=== PATIENT | female | born 1970 | race Caucasian/White ===

== ENCOUNTER 2023-03-07 10:11 | Inpatient (IN) | payer OTHER ==
[~2023-03-07] VITALS: Ht 167.6 cm; Wt 84.9 kg
[2023-03-07] VITALS (63 sets, daily range): BP systolic 47–171; BP diastolic 26–113; PULSE 83–143; RESP 14–48; TEMP 97.8–98.4
[2023-03-07] MEDS ORDERED: LIDOCAINE HCL 1% 20ML VIAL (Pyxis) INJ ONE (10:30)
[2023-03-07] MEDS ORDERED: HEPARIN 5000 UNITS/ML VIAL IV ONE ×2 (10:30→10:45)
[2023-03-07] MEDS ORDERED: MIDAZOLAM HCL 2 MG/2 ML VIAL ONE (10:31)
[2023-03-07] MEDS ORDERED: HEPARIN 1000 UNITS/ML 10ML ONE (10:31)
[2023-03-07] MEDS ORDERED: IODIXANOL 320MG/ML 100 ML BOTTLE IV ONE ×2 (10:31→11:46)
[2023-03-07] MEDS ORDERED: FENTANYL CITRATE/PF 50MCG/ML 2ML VIAL ONE (10:31)
[2023-03-07] MEDS ORDERED: SODIUM CHLORIDE 0.9% 1,000 ML IV ONE (10:45)
[2023-03-07] MEDS ORDERED: ASPIRIN 325MG TABLET PO NR (10:45)
[2023-03-07 11:06] LABS: HEMATOCRIT. 28.6 % (36.0-48.0); HEMOGLOBIN. 8.8 g/dL (12.0-16.0); MEAN CORPUSCULAR HEMOGLOBIN 25.7 pg (28.0-32.0); MEAN CORPUSCULAR HGB CONC 30.9 g/dL (31.0-37.0); MEAN CORPUSCULAR VOLUME 83.4 fL (81.0-99.0); MEAN PLATELET VOLUME 8.4 fl (7.4-10.4); PLATELET 516 x1000/uL (130-400); RED BLOOD CELL COUNT 3.43 mill/uL (4.2-5.4); RED CELL DISTRIBUTION WIDTH 17.1 % (11.6-14.6); WHITE BLOOD COUNT 20.1 x1000/uL (4.5-11.0)
[2023-03-07 11:07] LABS: CHLORIDE 107 mEq/L (98-107); INDEX HEMOLYSI 2 (1-3); INDEX ICTERIC 1 (1-4); INDEX LIPEMIC 1 (1-3); POTASSIUM 3.5 mEq/L (3.5-5.1); SODIUM 139 mEq/L (136-145)
[2023-03-07 11:10] LABS: CLARITY URINE CLOUDY (CLEAR); COLOR URINE ORANGE (YELLOW); GLUCOSE URINE 1+ (NEGATIVE); KETONES URINE NEGATIVE (NEGATIVE); LEUKOCYTE ESTERASE URINE TRACE (NEGATIVE); NITRITE URINE NEGATIVE (NEGATIVE); OCCULT BLOOD URINE 3+ (NEGATIVE); PH URINE 7.5 (4.5-8.0); PROTEIN URINE 4+ (NEGATIVE); SPECIFIC GRAVITY URINE 1.012 (1.005-1.030); UROBILINOGEN URINE 0.2 E.U./dL (0.2-1.0)
[2023-03-07 11:11] LABS: DIFFERENTIAL COMMENT 1
[2023-03-07 11:15] LABS: CALCIUM 8.2 mg/dL (8.5-10.1); CARBON DIOXIDE 21 mEq/L (21-32); CREATININE 2.9 mg/dL (0.6-1.3); GLUCOSE 188 mg/dL (70-105); UREA NITROGEN BLOOD 17 mg/dL (7-21)
[2023-03-07 11:19] LABS: INR 1.2; PARTIAL THROMBOPLASTIN TIME 27.8 sec (23.4-31.0); PROTHROMBIN TIME 12.4 sec (9.6-11.0)
[2023-03-07] MEDS ORDERED: TICAGRELOR 90 MG TABLET PO ONE (11:20)
[2023-03-07 11:24] LABS: HCG SCREEN NEGATIVE
[2023-03-07 11:30] LABS: BACTERIA URINE 1+; RBC URINE TNTC /hpf (0-2); SQUAMOUS EPITHELIAL CELL URINE 1+ /lpf (RARE/1+); YEAST URINE NONE SEEN
[2023-03-07 11:36] LABS: CHLORIDE 108 mEq/L (98-107); INDEX HEMOLYSI 2 (1-3); INDEX ICTERIC 1 (1-4); INDEX LIPEMIC 1 (1-3); POTASSIUM 3.6 mEq/L (3.5-5.1); SODIUM 140 mEq/L (136-145)
[2023-03-07] MEDS ORDERED: AMIODARONE HCL 50MG/ML 3ML VIAL IV ONE (11:40)
[2023-03-07 11:41] LABS: BG CARBOXYHEMOGLOBIN 0.3 % (0.5-1.5); BG DEOXYHEMOGLOBIN 1.3 % (0.0-5.0); BG FRACTION INSPIRED OXYGEN 100; BG HCO3 ACT 21.3 mmol/L (22.0-26.0); BG OXYGEN SATURATION 98.7 % (92.0-98.5); BG OXYHEMOGLOBIN 98.4 % (94.0-97.0); BG PCO2 35.1 mmHg (35.0-45.0); BG PH 7.401 (7.350-7.450); BG PO2 161.8 mmHg (75.0-100.0); BG SAMPLE SITE Other; BG TOTAL HEMOGLOBIN 8.9 g/dL (12.0-18.0); BG VENT MODE VENT - AC
[2023-03-07 11:45] LABS: ALANINE AMINOTRANSFERASE 36 IU/L (13-61); ALBUMIN 1.9 g/dL (3.4-5.0); ASPARTATE AMINOTRANSFERASE 58 IU/L (15-37); BILIRUBIN TOTAL 0.6 mg/dL (0.1-1.0); CALCIUM 8.7 mg/dL (8.5-10.1); CARBON DIOXIDE 20 mEq/L (21-32); CREATININE 2.9 mg/dL (0.6-1.3); GLUCOSE 191 mg/dL (70-105); NT PRO B-TYPE NATRIURETIC PEP 12341 pg/mL (5-125); PROTEIN TOTAL 6.6 g/dL (6.0-8.3); UREA NITROGEN BLOOD 18 mg/dL (7-21)
[2023-03-07] MEDS ORDERED: ASPIRIN 325MG TABLET ONE (11:48)
[2023-03-07 11:58] LABS: TROPONIN I HIGH SENSITIVITY 150 ng/L (<54)
[2023-03-07] MEDS ORDERED: EPTIFIBATIDE 2 MG/ML 10ML VIAL IV ONE ×3 (12:04→17:30)
[2023-03-07] MEDS ORDERED: EPTIFIBATIDE 100 ML IV ONE (12:10)
[2023-03-07] MEDS ORDERED: AMIODARONE HCL 900 MG in DEXT 5% WATER 500 ML IV PRN (12:15)
[2023-03-07 12:27] LABS: ANISOCYTOSIS 1+; PLATELET ESTIMATE INCREASED
[2023-03-07] MEDS ORDERED: FUROSEMIDE 100MG/10ML VIAL ONE (12:40)
[2023-03-07] MEDS ORDERED: DOCUSATE SODIUM 100MG CAPSULE PO PRN (13:30)
[2023-03-07] MEDS ORDERED: IPRATROPIUM/ALBUTEROL 0.5-3(2.5)MG/3ML NEB HHN PRN (13:30)
[2023-03-07] MEDS ORDERED: GUAIFENESIN 200MG/10ML SUGAR FREE UDC PO PRN (13:30)
[2023-03-07] MEDS ORDERED: ONDANSETRON HCL 4MG/2ML INJ IV PRN (13:30)
[2023-03-07] MEDS ORDERED: DEXTROSE 50% WATER 50ML SYRINGE IV PRN (13:30)
[2023-03-07] MEDS ORDERED: ACETAMINOPHEN 325MG TABLET PO PRN (13:30)
[2023-03-07] MEDS ORDERED: MAGNESIUM/ALUMINUM HYDROXIDE/SIMETHICONE 30ML UDC PO PRN (13:30)
[2023-03-07] MEDS ORDERED: CLONIDINE 0.1MG TABLET PO PRN (13:30)
[2023-03-07] MEDS ORDERED: IPRATROPIUM BROMIDE (0.02%) 0.5MG/2.5ML NEB HHN PRN (13:45)
[2023-03-07] MEDS ORDERED: LIDOCAINE HCL 1% 10 MG/ML 10ML VIAL ONE (13:53)
[2023-03-07] MEDS ORDERED: PROPOFOL 10MG/ML 100ML 100 ML IV PRN (14:00)
[2023-03-07] MEDS ORDERED: ENOXAPARIN 40MG/0.4ML SYR SUBCUT SCH (14:00)
[2023-03-07] MEDS ORDERED: MIDAZOLAM 100MG/100ML PMX 100 ML IV PRN (14:15)
[2023-03-07] MEDS ORDERED: FENTANYL 2500MCG/250ML PMX 250 ML IV ONE (14:15)
[2023-03-07] MEDS ORDERED: VANCOMYCIN 1250MG in DEXTROSE 5% WATER 250ML IV NR (14:30)
[2023-03-07] MEDS: FENTANYL CITRATE 2,500 MCG in SODIUM CHLORIDE 0.9% 200 ML IV PRN (14:59)
[2023-03-07] MEDS: MIDAZOLAM HCL 100 MG in SODIUM CHLORIDE 0.9% 100 ML IV PRN (15:00)
[2023-03-07] MEDS: ENOXAPARIN 30MG/0.3ML SYR SUBCUT SCH (15:00)
[2023-03-07] MEDS ORDERED: PHENYLEPHRINE 50 MG in DEXT 5% WATER 245 ML IV PRN (15:00)
[2023-03-07] MEDS: NOREPINEPHRINE 8MG/250ML PMX 250 ML IV PRN ×2 (16:00→17:45)
[2023-03-07] MEDS ORDERED: PIPERACILLIN/TAZOBACTAM 3.375 G in DEXTROSE 5% WATER 50 ML IV SCH (16:00)
[2023-03-07] MEDS: PANTOPRAZOLE SODIUM 40 MG/VIAL IV SCH (16:04)
[2023-03-07] MEDS: INSULIN LISPRO 100 UNITS/ML SUBCUT SCH ×2 (16:05→18:37)
[2023-03-07] MEDS ORDERED: DOPAMINE 400MG/250ML PREMIX 250 ML IV PRN (16:15)
[2023-03-07] MEDS ORDERED: VASOPRESSIN 20 UNIT in SODIUM CHLORIDE 0.9% 99 ML IV PRN (17:00)
[2023-03-07] MEDS: TICAGRELOR 90 MG TABLET PO SCH (17:06)
[2023-03-07 17:17] LABS: LACTIC ACID 12.8 mmol/L (0.4-2.0)
[2023-03-07] MEDS ORDERED: BLOOD SUGAR DIAGNOSTIC STRIP TEST SCH (17:50)
[2023-03-07 17:57] LABS: BG BASE EXCESS -18.3 mmol/L (-2.0-2.0); BG CARBOXYHEMOGLOBIN 0.3 % (0.5-1.5); BG DEOXYHEMOGLOBIN 28.3 % (0.0-5.0); BG FRACTION INSPIRED OXYGEN 100; BG HCO3 ACT 9.8 mmol/L (22.0-26.0); BG METHEMOGLOBIN 0.4 % (0.0-1.5); BG OXYGEN SATURATION 71.5 % (92.0-98.5); BG PCO2 31.1 mmHg (35.0-45.0); BG PH 7.115 (7.350-7.450); BG PO2 53.4 mmHg (75.0-100.0); BG SAMPLE SITE LEFT RADIAL; BG TOTAL HEMOGLOBIN 9.5 g/dL (12.0-18.0); BG VENT MODE VENT - AC
[2023-03-07] MEDS ORDERED: EPINEPHRINE 10 MG in SODIUM CHLORIDE 0.9% 240 ML IV PRN (18:00)
[2023-03-07] MEDS ORDERED: ALBUMIN HUMAN 12.5GM/50ML (25%) IV NR (18:00)
[2023-03-07] MEDS ORDERED: EPTIFIBATIDE 100 ML IV SCH ×2 (18:00)
[2023-03-07] MEDS ORDERED: SODIUM BICARBONATE 8.4% 1 MEQ/ML 50ML SYR IV NR (18:15)
[2023-03-07 18:32] LABS: TROPONIN I HIGH SENSITIVITY > 125000 ng/L (<54)
[2023-03-07] MEDS: METHYLPREDNISOLONE SOD SUCC 40MG/ML (ACT-O-VIAL) IV SCH (18:40)
[2023-03-07 19:11] LABS: INDEX HEMOLYSI 1 (1-3)
[2023-03-07] MEDS: NOREPINEPHRINE 32 MG in DEXT 5% WATER 218 ML IV PRN (19:21)
[2023-03-07 19:32] LABS: CREATINE KINASE 1728 IU/L (26-192); CREATINE KINASE MB FRACTION 173.6 ng/mL (0.5-3.6)
[2023-03-07] MEDS: DOPAMINE 400MG/250ML PREMIX 250 ML IV SCH (20:24)
[2023-03-07 20:28] LABS: TROPONIN I HIGH SENSITIVITY > 125000 ng/L (<54)
[2023-03-07] MEDS: ATORVASTATIN CALCIUM 40MG TABLET PO SCH (21:24)
[2023-03-07] MEDS: PHENYLEPHRINE 100 MG in DEXT 5% WATER 240 ML IV PRN (21:26)
[2023-03-07 22:27] LABS: LACTIC ACID 14.1 mmol/L (0.4-2.0)
[2023-03-07 22:30] LABS: TROPONIN I HIGH SENSITIVITY > 125000 ng/L (<54)
[2023-03-07 23:04] LABS: BG BASE EXCESS -5.5 mmol/L (-2.0-2.0); BG CARBOXYHEMOGLOBIN 0.3 % (0.5-1.5); BG DEOXYHEMOGLOBIN 4.3 % (0.0-5.0); BG FRACTION INSPIRED OXYGEN 100; BG HCO3 ACT 16.7 mmol/L (22.0-26.0); BG METHEMOGLOBIN 0.3 % (0.0-1.5); BG OXYGEN SATURATION 95.7 % (92.0-98.5); BG OXYHEMOGLOBIN 95.1 % (94.0-97.0); BG PCO2 21.8 mmHg (35.0-45.0); BG PH 7.503 (7.350-7.450); BG PO2 77.5 mmHg (75.0-100.0); BG SAMPLE SITE LEFT FEMORAL; BG TOTAL HEMOGLOBIN 7.4 g/dL (12.0-18.0); BG VENT MODE VENT - AC
[2023-03-08] VITALS (108 sets, daily range): BP systolic 80–149; BP diastolic 32–85; PULSE 83–126; RESP 21–41; TEMP 97.3–98.7
[2023-03-08] MEDS: BLOOD SUGAR DIAGNOSTIC STRIP TEST SCH ×4 (00:19→17:13)
[2023-03-08] MEDS: INSULIN LISPRO 100 UNITS/ML SUBCUT SCH ×4 (00:24→17:13)
[2023-03-08 01:09] LABS: CREATINE KINASE MB FRACTION 427.4 ng/mL (0.5-3.6)
[2023-03-08] MEDS: METHYLPREDNISOLONE SOD SUCC 40MG/ML (ACT-O-VIAL) IV SCH ×2 (02:13→09:19)
[2023-03-08] MEDS: DOPAMINE 400MG/250ML PREMIX 250 ML IV SCH ×3 (04:17→23:46)
[2023-03-08 06:08] LABS: INDEX HEMOLYSI 1 (1-3)
[2023-03-08 06:20] LABS: HEMATOCRIT. 22.2 % (36.0-48.0); HEMOGLOBIN. 7.1 g/dL (12.0-16.0); MEAN CORPUSCULAR HEMOGLOBIN 25.5 pg (28.0-32.0); MEAN CORPUSCULAR HGB CONC 31.9 g/dL (31.0-37.0); MEAN CORPUSCULAR VOLUME 80.1 fL (81.0-99.0); MEAN PLATELET VOLUME 8.8 fl (7.4-10.4); PLATELET 440 x1000/uL (130-400); RED BLOOD CELL COUNT 2.77 mill/uL (4.2-5.4); RED CELL DISTRIBUTION WIDTH 16.7 % (11.6-14.6); WHITE BLOOD COUNT 30.7 x1000/uL (4.5-11.0)
[2023-03-08 06:34] LABS: DIFFERENTIAL COMMENT 1
[2023-03-08 06:40] LABS: FOLIC ACID (FOLATE) SERUM > 20.00 ng/mL (>5.38); VITAMIN B12 SERUM > 2000.0 pg/mL (211-911)
[2023-03-08 06:55] LABS: INDEX HEMOLYSI 1 (1-3)
[2023-03-08 07:34] LABS: CREATINE KINASE 4874 IU/L (26-192); CREATINE KINASE MB FRACTION 403.6 ng/mL (0.5-3.6)
[2023-03-08] MEDS: PHENYLEPHRINE 100 MG in DEXT 5% WATER 240 ML IV PRN ×3 (07:34→23:44)
[2023-03-08] MEDS: IPRATROPIUM BROMIDE (0.02%) 0.5MG/2.5ML NEB HHN SCH ×3 (07:52→20:27)
[2023-03-08 08:39] LABS: BG BASE EXCESS -3.7 mmol/L (-2.0-2.0); BG CARBOXYHEMOGLOBIN 0.1 % (0.5-1.5); BG DEOXYHEMOGLOBIN 3.7 % (0.0-5.0); BG FRACTION INSPIRED OXYGEN 100; BG HCO3 ACT 19.6 mmol/L (22.0-26.0); BG METHEMOGLOBIN 0.3 % (0.0-1.5); BG OXYGEN SATURATION 96.3 % (92.0-98.5); BG OXYHEMOGLOBIN 95.9 % (94.0-97.0); BG PCO2 27.8 mmHg (35.0-45.0); BG PH 7.466 (7.350-7.450); BG PO2 93.7 mmHg (75.0-100.0); BG SAMPLE SITE RIGHT BRACHIAL; BG TOTAL HEMOGLOBIN 6.4 g/dL (12.0-18.0); BG VENT MODE VENT - AC
[2023-03-08] MEDS ORDERED: PIPERACILLIN/TAZOBACTAM 3.375 G in DEXTROSE 5% WATER 50 ML IV SCH (09:00)
[2023-03-08] MEDS: ASPIRIN 81MG TABLET PO SCH (09:19)
[2023-03-08] MEDS: PANTOPRAZOLE SODIUM 40 MG/VIAL IV SCH (09:20)
[2023-03-08] MEDS: TICAGRELOR 90 MG TABLET PO SCH ×2 (09:20→16:18)
[2023-03-08 09:36] LABS: TROPONIN I HIGH SENSITIVITY 109540 ng/L (<54)
[2023-03-08] MEDS ORDERED: LACTATED RINGERS 500 ML IV ONE (10:15)
[2023-03-08] MEDS ORDERED: MEROPENEM 1,000 MG in SODIUM CHLORIDE 0.9% 100 ML IV SCH (11:00)
[2023-03-08 11:15] LABS: CHLORIDE 102 mEq/L (98-107); INDEX HEMOLYSI 1 (1-3); INDEX ICTERIC 1 (1-4); INDEX LIPEMIC 1 (1-3); POTASSIUM 4.1 mEq/L (3.5-5.1); SODIUM 140 mEq/L (136-145)
[2023-03-08 11:36] LABS: ALBUMIN 1.9 g/dL (3.4-5.0); BILIRUBIN TOTAL 1.3 mg/dL (0.1-1.0); CARBON DIOXIDE 18 mEq/L (21-32); CHOLESTEROL 83 mg/dL (<200); CREATININE 3.8 mg/dL (0.6-1.3); GLUCOSE 210 mg/dL (70-105); HDL CHOLESTEROL 31 mg/dL (40-59); IRON 109 ug/dL (50-175); LDL CHOLESTEROL 47 mg/dL (5-100); PROTEIN TOTAL 5.8 g/dL (6.0-8.3); THYROID STIMULATING HORMONE 0.79 uIU/mL (0.36-3.74); TOTAL IRON BINDING CAPACITY 130 ug/dL (250-450); TRIGLYCERIDE 72 mg/dL (0-150); UREA NITROGEN BLOOD 30 mg/dL (7-21)
[2023-03-08 11:46] LABS: ALANINE AMINOTRANSFERASE 3262 IU/L (13-61); ASPARTATE AMINOTRANSFERASE 7830 IU/L (15-37)
[2023-03-08] MEDS: AMIODARONE HCL 200 MG TABLET PO SCH ×2 (12:11→22:36)
[2023-03-08] MEDS: ENOXAPARIN 30MG/0.3ML SYR SUBCUT SCH (16:19)
[2023-03-08 17:18] LABS: HEMATOCRIT 26.2 % (36.0-48.0); HEMOGLOBIN 8.1 g/dL (12.0-16.0)
[2023-03-08 17:36] LABS: AMMONIA 67 uMol/L (<32)
[2023-03-08] MEDS ORDERED: MEROPENEM 500MG in NORMAL SALINE 50ML IV SCH (22:00)
[2023-03-08] MEDS: ATORVASTATIN CALCIUM 40MG TABLET PO SCH (22:36)
[2023-03-09] VITALS (127 sets, daily range): BP systolic 74–147; BP diastolic 35–92; PULSE 85–119; RESP 0–32; TEMP 97.7–98.3
[2023-03-09] MEDS: IPRATROPIUM BROMIDE (0.02%) 0.5MG/2.5ML NEB HHN SCH ×4 (00:15→21:13)
[2023-03-09] MEDS: BLOOD SUGAR DIAGNOSTIC STRIP TEST SCH ×4 (00:33→17:41)
[2023-03-09] MEDS: FENTANYL CITRATE 2,500 MCG in SODIUM CHLORIDE 0.9% 200 ML IV PRN ×2 (03:22→17:45)
[2023-03-09 05:09] LABS: PLATELET ESTIMATE NORMAL
[2023-03-09 05:31] LABS: HEMATOCRIT. 25.8 % (36.0-48.0); MEAN CORPUSCULAR HEMOGLOBIN 26.3 pg (28.0-32.0); MEAN PLATELET VOLUME 9.1 fl (7.4-10.4); PLATELET 300 x1000/uL (130-400); RED BLOOD CELL COUNT 3.03 mill/uL (4.2-5.4); RED CELL DISTRIBUTION WIDTH 17.3 % (11.6-14.6)
[2023-03-09 05:35] LABS: CHLORIDE 97 mEq/L (98-107); INDEX HEMOLYSI 1 (1-3); INDEX ICTERIC 1 (1-4); INDEX LIPEMIC 1 (1-3); POTASSIUM 5.4 mEq/L (3.5-5.1); SODIUM 133 mEq/L (136-145)
[2023-03-09] MEDS: INSULIN LISPRO 100 UNITS/ML SUBCUT SCH ×4 (06:00→17:41)
[2023-03-09 06:06] LABS: BILIRUBIN TOTAL 2.5 mg/dL (0.1-1.0); CARBON DIOXIDE 15 mEq/L (21-32); GLUCOSE 158 mg/dL (70-105); PROTEIN TOTAL 5.9 g/dL (6.0-8.3); UREA NITROGEN BLOOD 56 mg/dL (7-21)
[2023-03-09 06:07] LABS: DIFFERENTIAL COMMENT 1
[2023-03-09 06:08] LABS: WHITE BLOOD COUNT 42.7 x1000/uL (4.5-11.0)
[2023-03-09] MEDS: PHENYLEPHRINE 100 MG in DEXT 5% WATER 240 ML IV PRN (06:11)
[2023-03-09 06:27] LABS: ALANINE AMINOTRANSFERASE 6051 IU/L (13-61); ASPARTATE AMINOTRANSFERASE 14029 IU/L (15-37)
[2023-03-09 06:31] LABS: CREATININE 5.8 mg/dL (0.6-1.3)
[2023-03-09 06:32] LABS: CALCIUM 5.1 mg/dL (8.5-10.1)
[2023-03-09] MEDS: MIDAZOLAM HCL 100 MG in SODIUM CHLORIDE 0.9% 100 ML IV PRN (07:34)
[2023-03-09 08:00] LABS: BG BASE EXCESS -12.6 mmol/L (-2.0-2.0); BG CARBOXYHEMOGLOBIN 0.2 % (0.5-1.5); BG DEOXYHEMOGLOBIN 9.3 % (0.0-5.0); BG FRACTION INSPIRED OXYGEN 60; BG HCO3 ACT 13.4 mmol/L (22.0-26.0); BG METHEMOGLOBIN 0.1 % (0.0-1.5); BG OXYGEN SATURATION 90.7 % (92.0-98.5); BG OXYHEMOGLOBIN 90.4 % (94.0-97.0); BG PCO2 31.5 mmHg (35.0-45.0); BG PH 7.248 (7.350-7.450); BG PO2 74.8 mmHg (75.0-100.0); BG SAMPLE SITE RIGHT RADIAL; BG TOTAL HEMOGLOBIN 10.3 g/dL (12.0-18.0); BG VENT MODE VENT - AC
[2023-03-09] MEDS ORDERED: LACTULOSE 20G/30ML UDC NG SCH (08:00)
[2023-03-09] MEDS ORDERED: SODIUM POLYSTYRENE SULFONATE 15 G/60 ML BOT NG SCH (08:00)
[2023-03-09] MEDS ORDERED: SODIUM BICARBONATE 8.4% 1 MEQ/ML 50ML SYR IV SCH (09:00)
[2023-03-09] MEDS ORDERED: PHENYLEPHRINE 100 MG in DEXT 5% WATER 240 ML IV PRN (09:00)
[2023-03-09] MEDS: PANTOPRAZOLE SODIUM 40 MG/VIAL IV SCH (09:04)
[2023-03-09] MEDS: TICAGRELOR 90 MG TABLET PO SCH ×2 (09:05→17:44)
[2023-03-09] MEDS ORDERED: LIDOCAINE HCL 1% 10 MG/ML 10ML VIAL ONE (09:17)
[2023-03-09 09:53] LABS: ANISOCYTOSIS 1+; NUCLEATED RED BLOOD CELLS 5 /100 WBC; PLATELET ESTIMATE NORMAL
[2023-03-09] MEDS ORDERED: ALBUMIN HUMAN 25GM/100ML (25%) IV NR (10:00)
[2023-03-09] MEDS: DOPAMINE 400MG/250ML PREMIX 250 ML IV SCH (10:06)
[2023-03-09] MEDS: ASPIRIN 81MG TABLET PO SCH (11:05)
[2023-03-09 12:39] LABS: HEPATITIS B SURFACE ANTIGEN NEGATIVE
[2023-03-09 13:07] LABS: HEPATITIS B CORE AB IGM NEGATIVE; HEPATITIS C VIR.AB 0.15 INDEXVAL (0.00-0.80)
[2023-03-09 13:09] LABS: HEPATITIS A AB IGM NEGATIVE (NEGATIVE)
[2023-03-09] MEDS: ENOXAPARIN 30MG/0.3ML SYR SUBCUT SCH (16:06)
[2023-03-09] MEDS ORDERED: AMLO5TAB88 PO (17:39)
[2023-03-09] MEDS ORDERED: MORPHINE SULFATE 2 MG/ML CPJ (NOT FOR IM USE) IV PRN (17:45)
[2023-03-09] MEDS ORDERED: NALOXONE HCL 0.4MG/ML VIAL IV PRN (17:45)
[2023-03-09 18:46] LABS: BG BASE EXCESS -1.9 mmol/L (-2.0-2.0); BG CARBOXYHEMOGLOBIN 0.3 % (0.5-1.5); BG DEOXYHEMOGLOBIN 5.2 % (0.0-5.0); BG FRACTION INSPIRED OXYGEN 60; BG HCO3 ACT 21.6 mmol/L (22.0-26.0); BG METHEMOGLOBIN 0.1 % (0.0-1.5); BG OXYGEN SATURATION 94.8 % (92.0-98.5); BG OXYHEMOGLOBIN 94.4 % (94.0-97.0); BG PCO2 31.3 mmHg (35.0-45.0); BG PH 7.457 (7.350-7.450); BG PO2 83.7 mmHg (75.0-100.0); BG SAMPLE SITE RIGHT RADIAL; BG TOTAL HEMOGLOBIN 7.8 g/dL (12.0-18.0); BG VENT MODE VENT - AC
[2023-03-09] MEDS: LACTULOSE 20G/30ML UDC NG SCH (21:42)
[2023-03-09] MEDS: MEROPENEM 500MG in NORMAL SALINE 50ML IV SCH (21:43)
[2023-03-10] VITALS (99 sets, daily range): BP systolic 95–155; BP diastolic 52–82; PULSE 77–107; RESP 18–31; TEMP 97.1–98.7
[2023-03-10] MEDS: IPRATROPIUM BROMIDE (0.02%) 0.5MG/2.5ML NEB HHN SCH ×4 (00:58→20:29)
[2023-03-10] MEDS: DOPAMINE 400MG/250ML PREMIX 250 ML IV SCH ×2 (01:12→20:50)
[2023-03-10] MEDS: NOREPINEPHRINE 32 MG in DEXT 5% WATER 218 ML IV PRN (01:13)
[2023-03-10 05:13] LABS: BASOPHILS % 0.1 % (0.0-2.0); MEAN CORPUSCULAR HEMOGLOBIN 26.8 pg (28.0-32.0); MEAN CORPUSCULAR HGB CONC 32.8 g/dL (31.0-37.0); MEAN CORPUSCULAR VOLUME 81.8 fL (81.0-99.0); MEAN PLATELET VOLUME 8.9 fl (7.4-10.4); MONOCYTES % 2.3 % (2.0-8.0); NEUTROPHILS % 86.6 % (40.0-76.0); PLATELET 195 x1000/uL (130-400); RED BLOOD CELL COUNT 2.53 mill/uL (4.2-5.4); RED CELL DISTRIBUTION WIDTH 18.2 % (11.6-14.6); WHITE BLOOD COUNT 21.4 x1000/uL (4.5-11.0)
[2023-03-10 05:34] LABS: INDEX HEMOLYSI 1 (1-3)
[2023-03-10 05:40] LABS: CHLORIDE 99 mEq/L (98-107); INDEX HEMOLYSI 1 (1-3); INDEX ICTERIC 2 (1-4); INDEX LIPEMIC 1 (1-3); POTASSIUM 3.7 mEq/L (3.5-5.1); SODIUM 137 mEq/L (136-145)
[2023-03-10 05:53] LABS: DIFFERENTIAL COMMENT 1
[2023-03-10 05:57] LABS: HEMATOCRIT. 20.7 % (36.0-48.0); HEMOGLOBIN. 6.8 g/dL (12.0-16.0)
[2023-03-10 05:59] LABS: AMMONIA 116 uMol/L (<32)
[2023-03-10 06:01] LABS: ALBUMIN 2.2 g/dL (3.4-5.0); BILIRUBIN TOTAL 2.5 mg/dL (0.1-1.0); CARBON DIOXIDE 24 mEq/L (21-32); GLUCOSE 172 mg/dL (70-105); PHOSPHORUS 6.4 mg/dL (2.5-4.9); PROTEIN TOTAL 5.4 g/dL (6.0-8.3); UREA NITROGEN BLOOD 68 mg/dL (7-21)
[2023-03-10 06:35] LABS: ALANINE AMINOTRANSFERASE 3991 IU/L (13-61); ASPARTATE AMINOTRANSFERASE 4635 IU/L (15-37)
[2023-03-10 06:36] LABS: CREATININE 5.4 mg/dL (0.6-1.3)
[2023-03-10] MEDS: BLOOD SUGAR DIAGNOSTIC STRIP TEST SCH ×4 (06:40→17:41)
[2023-03-10] MEDS: LACTULOSE 20G/30ML UDC NG SCH ×3 (06:55→21:53)
[2023-03-10] MEDS: INSULIN LISPRO 100 UNITS/ML SUBCUT SCH ×4 (06:57→17:41)
[2023-03-10 08:23] LABS: BG BASE EXCESS -1.7 mmol/L (-2.0-2.0); BG CARBOXYHEMOGLOBIN 0.3 % (0.5-1.5); BG DEOXYHEMOGLOBIN 2.2 % (0.0-5.0); BG FRACTION INSPIRED OXYGEN 60; BG METHEMOGLOBIN 0.6 % (0.0-1.5); BG OXYGEN SATURATION 97.8 % (92.0-98.5); BG OXYHEMOGLOBIN 96.9 % (94.0-97.0); BG PCO2 27.5 mmHg (35.0-45.0); BG PH 7.501 (7.350-7.450); BG PO2 115.6 mmHg (75.0-100.0); BG SAMPLE SITE RIGHT RADIAL; BG TOTAL HEMOGLOBIN 7.4 g/dL (12.0-18.0); BG VENT MODE VENT - AC
[2023-03-10] MEDS: TICAGRELOR 90 MG TABLET PO SCH ×2 (08:53→17:41)
[2023-03-10] MEDS: PANTOPRAZOLE SODIUM 40 MG/VIAL IV SCH (08:53)
[2023-03-10] MEDS: ASPIRIN 81MG TABLET PO SCH (08:53)
[2023-03-10 10:14] LABS: PROTHROMBIN TIME 55.8 sec (9.6-11.0)
[2023-03-10 10:43] LABS: INR 5.8
[2023-03-10] MEDS ORDERED: VANCOMYCIN 1G PREMIX 200 ML IV SCH (14:00)
[2023-03-10 16:29] LABS: HEMATOCRIT 25.5 % (36.0-48.0); HEMOGLOBIN 8.3 g/dL (12.0-16.0)
[2023-03-10] MEDS: MEROPENEM 500MG in NORMAL SALINE 50ML IV SCH (21:53)
[2023-03-11] VITALS (89 sets, daily range): BP systolic 83–145; BP diastolic 47–86; PULSE 88–120; RESP 12–36; TEMP 98.1–100.8
[2023-03-11] MEDS: BLOOD SUGAR DIAGNOSTIC STRIP TEST SCH ×4 (00:26→17:50)
[2023-03-11] MEDS: INSULIN LISPRO 100 UNITS/ML SUBCUT SCH ×4 (00:49→17:50)
[2023-03-11] MEDS: IPRATROPIUM BROMIDE (0.02%) 0.5MG/2.5ML NEB HHN SCH ×4 (01:46→20:19)
[2023-03-11 05:52] LABS: HEMATOCRIT. 26.7 % (36.0-48.0); HEMOGLOBIN. 8.8 g/dL (12.0-16.0); MEAN CORPUSCULAR HEMOGLOBIN 27.4 pg (28.0-32.0); MEAN CORPUSCULAR HGB CONC 32.8 g/dL (31.0-37.0); MEAN CORPUSCULAR VOLUME 83.4 fL (81.0-99.0); MEAN PLATELET VOLUME 8.8 fl (7.4-10.4); PLATELET 157 x1000/uL (130-400); RED CELL DISTRIBUTION WIDTH 17.5 % (11.6-14.6); WHITE BLOOD COUNT 22.7 x1000/uL (4.5-11.0)
[2023-03-11 05:56] LABS: INDEX HEMOLYSI 1 (1-3)
[2023-03-11 05:57] LABS: CHLORIDE 105 mEq/L (98-107); INDEX HEMOLYSI 1 (1-3); INDEX ICTERIC 2 (1-4); INDEX LIPEMIC 1 (1-3); POTASSIUM 3.3 mEq/L (3.5-5.1); SODIUM 142 mEq/L (136-145)
[2023-03-11 05:59] LABS: AMMONIA 37 uMol/L (<32)
[2023-03-11 06:09] LABS: ALANINE AMINOTRANSFERASE 2347 IU/L (13-61); ALBUMIN 2.2 g/dL (3.4-5.0); ASPARTATE AMINOTRANSFERASE 1041 IU/L (15-37); BILIRUBIN TOTAL 3.1 mg/dL (0.1-1.0); CALCIUM 6.2 mg/dL (8.5-10.1); CARBON DIOXIDE 25 mEq/L (21-32); CREATININE 4.8 mg/dL (0.6-1.3); GLUCOSE 162 mg/dL (70-105); PHOSPHORUS 4.7 mg/dL (2.5-4.9); PROTEIN TOTAL 5.3 g/dL (6.0-8.3); UREA NITROGEN BLOOD 64 mg/dL (7-21)
[2023-03-11 06:37] LABS: INR 2.7; PARTIAL THROMBOPLASTIN TIME 42.2 sec (23.4-31.0); PROTHROMBIN TIME 27.2 sec (9.6-11.0)
[2023-03-11] MEDS: LACTULOSE 20G/30ML UDC NG SCH ×2 (06:55→13:06)
[2023-03-11 07:36] LABS: DIFFERENTIAL COMMENT 1
[2023-03-11 08:00] LABS: BG BASE EXCESS -0.5 mmol/L (-2.0-2.0); BG CARBOXYHEMOGLOBIN 0.1 % (0.5-1.5); BG DEOXYHEMOGLOBIN 5.7 % (0.0-5.0); BG FRACTION INSPIRED OXYGEN 40; BG HCO3 ACT 21.1 mmol/L (22.0-26.0); BG METHEMOGLOBIN 0.3 % (0.0-1.5); BG OXYGEN SATURATION 94.3 % (92.0-98.5); BG OXYHEMOGLOBIN 93.9 % (94.0-97.0); BG PCO2 24.8 mmHg (35.0-45.0); BG PH 7.547 (7.350-7.450); BG PO2 73.5 mmHg (75.0-100.0); BG SAMPLE SITE RIGHT RADIAL; BG TOTAL HEMOGLOBIN 9.4 g/dL (12.0-18.0); BG VENT MODE VENT - AC
[2023-03-11] MEDS: PANTOPRAZOLE SODIUM 40 MG/VIAL IV SCH (08:27)
[2023-03-11] MEDS: ASPIRIN 81MG TABLET PO SCH (08:27)
[2023-03-11] MEDS: TICAGRELOR 90 MG TABLET PO SCH ×2 (08:27→17:50)
[2023-03-11] MEDS ORDERED: BARIUM SULFATE 450ML ORAL SUSP PO SCH (12:15)
[2023-03-11] MEDS ORDERED: DIATR MEGLU/DIATRIZOATE SOLN 30ML PO SCH (12:15)
[2023-03-11 14:20] LABS: CALCIUM 6.4 mg/dL (8.5-10.1)
[2023-03-11] MEDS: KCL 20MEQ/100ML PREMIX 100 ML IV SCH ×2 (15:16→18:58)
[2023-03-11] MEDS: DOPAMINE 400MG/250ML PREMIX 250 ML IV SCH (18:05)
[2023-03-11 18:11] LABS: PLATELET ESTIMATE NORMAL
[2023-03-11] MEDS ORDERED: IOHEXOL-350 100 ML BOTTLE ONE (21:02)
[2023-03-11] MEDS: MEROPENEM 500MG in NORMAL SALINE 50ML IV SCH (21:29)
[2023-03-12] VITALS (103 sets, daily range): BP systolic 92–142; BP diastolic 52–86; PULSE 86–104; RESP 15–31; TEMP 97.8–98.6
[2023-03-12] MEDS: LACTULOSE 20G/30ML UDC NG SCH ×4 (01:01→22:03)
[2023-03-12] MEDS: INSULIN LISPRO 100 UNITS/ML SUBCUT SCH ×4 (01:08→18:00)
[2023-03-12] MEDS: IPRATROPIUM BROMIDE (0.02%) 0.5MG/2.5ML NEB HHN SCH ×3 (02:14→20:38)
[2023-03-12 06:19] LABS: INDEX HEMOLYSI 1 (1-3)
[2023-03-12 06:23] LABS: AMMONIA 17 uMol/L (<32)
[2023-03-12] MEDS: BLOOD SUGAR DIAGNOSTIC STRIP TEST SCH ×4 (06:33→18:07)
[2023-03-12 06:42] LABS: HEMATOCRIT. 26.3 % (36.0-48.0); HEMOGLOBIN. 8.5 g/dL (12.0-16.0); MEAN CORPUSCULAR HEMOGLOBIN 27.9 pg (28.0-32.0); MEAN CORPUSCULAR HGB CONC 32.4 g/dL (31.0-37.0); MEAN CORPUSCULAR VOLUME 86.1 fL (81.0-99.0); MEAN PLATELET VOLUME 9.5 fl (7.4-10.4); PLATELET 111 x1000/uL (130-400); RED BLOOD CELL COUNT 3.06 mill/uL (4.2-5.4); RED CELL DISTRIBUTION WIDTH 18.3 % (11.6-14.6); WHITE BLOOD COUNT 23.9 x1000/uL (4.5-11.0)
[2023-03-12 06:51] LABS: DIFFERENTIAL COMMENT 1
[2023-03-12 06:52] LABS: POTASSIUM 3.4 mEq/L (3.5-5.1)
[2023-03-12 06:58] LABS: INR 1.9; PROTHROMBIN TIME 19.5 sec (9.6-11.0)
[2023-03-12 07:12] LABS: ALBUMIN 2.1 g/dL (3.4-5.0); BILIRUBIN DIRECT 0.8 mg/dL (0.0-0.2); BILIRUBIN TOTAL 2.9 mg/dL (0.1-1.0); CALCIUM 7.3 mg/dL (8.5-10.1); PROTEIN TOTAL 5.2 g/dL (6.0-8.3)
[2023-03-12 07:22] LABS: CREATININE 5.8 mg/dL (0.6-1.3)
[2023-03-12 08:55] LABS: D-DIMER > 35.20 mg/L FEU (<0.50)
[2023-03-12] MEDS ORDERED: METOCLOPRAMIDE HCL 10MG/2ML VIAL IV NR (10:00)
[2023-03-12] MEDS: PANTOPRAZOLE SODIUM 40 MG/VIAL IV SCH (10:28)
[2023-03-12] MEDS: ASPIRIN 81MG TABLET PO SCH (10:29)
[2023-03-12] MEDS: TICAGRELOR 90 MG TABLET PO SCH ×2 (10:29→18:06)
[2023-03-12] MEDS ORDERED: LORAZEPAM 2MG/ML CPJ IV NR (10:45)
[2023-03-12] MEDS ORDERED: DOPAMINE 400MG/250ML PREMIX 250 ML IV PRN (11:00)
[2023-03-12 11:05] LABS: NUCLEATED RED BLOOD CELLS 15 /100 WBC
[2023-03-12 11:07] LABS: ANISOCYTOSIS 2+; PLATELET ESTIMATE SLIGHTLY DECREASED
[2023-03-12] MEDS: MEROPENEM 500MG in NORMAL SALINE 50ML IV SCH (21:19)
[2023-03-13] VITALS (40 sets, daily range): BP systolic 90–128; BP diastolic 51–73; PULSE 93–131; RESP 8–35; TEMP 98.8–102.6; O2SAT 100
[2023-03-13] MEDS: INSULIN LISPRO 100 UNITS/ML SUBCUT SCH ×3 (06:00→12:00)
[2023-03-13] MEDS: BLOOD SUGAR DIAGNOSTIC STRIP TEST SCH ×3 (06:00→12:00)
[2023-03-13 06:37] LABS: HEMATOCRIT. 25.9 % (36.0-48.0); HEMOGLOBIN. 8.3 g/dL (12.0-16.0); MEAN CORPUSCULAR HEMOGLOBIN 27.8 pg (28.0-32.0); MEAN CORPUSCULAR HGB CONC 32.1 g/dL (31.0-37.0); MEAN CORPUSCULAR VOLUME 86.7 fL (81.0-99.0); MEAN PLATELET VOLUME 10.2 fl (7.4-10.4); PLATELET 104 x1000/uL (130-400); RED BLOOD CELL COUNT 2.99 mill/uL (4.2-5.4); RED CELL DISTRIBUTION WIDTH 18.5 % (11.6-14.6); WHITE BLOOD COUNT 22.6 x1000/uL (4.5-11.0)
[2023-03-13 06:51] LABS: DIFFERENTIAL COMMENT 1
[2023-03-13 07:06] LABS: INDEX HEMOLYSI 1 (1-3)
[2023-03-13 07:09] LABS: AMMONIA 29 uMol/L (<32)
[2023-03-13 07:22] LABS: POTASSIUM 3.4 mEq/L (3.5-5.1)
[2023-03-13 07:31] LABS: ALBUMIN 2.1 g/dL (3.4-5.0); BILIRUBIN DIRECT 0.6 mg/dL (0.0-0.2); BILIRUBIN TOTAL 2.9 mg/dL (0.1-1.0); CALCIUM 7.3 mg/dL (8.5-10.1); CREATININE 4.3 mg/dL (0.6-1.3); PHOSPHORUS 4.3 mg/dL (2.5-4.9); PROTEIN TOTAL 5.3 g/dL (6.0-8.3)
[2023-03-13] MEDS: LACTULOSE 20G/30ML UDC NG SCH ×2 (07:38→14:00)
[2023-03-13 08:32] LABS: BG BASE EXCESS 5.2 mmol/L (-2.0-2.0); BG CARBOXYHEMOGLOBIN 0.3 % (0.5-1.5); BG DEOXYHEMOGLOBIN 2.6 % (0.0-5.0); BG FRACTION INSPIRED OXYGEN 40; BG HCO3 ACT 28.1 mmol/L (22.0-26.0); BG METHEMOGLOBIN 0.1 % (0.0-1.5); BG OXYGEN SATURATION 97.4 % (92.0-98.5); BG PCO2 35.1 mmHg (35.0-45.0); BG PH 7.522 (7.350-7.450); BG PO2 105.6 mmHg (75.0-100.0); BG SAMPLE SITE RIGHT RADIAL; BG TOTAL HEMOGLOBIN 9.7 g/dL (12.0-18.0); BG VENT MODE VENT - SIMV
[2023-03-13 09:21] LABS: ANISOCYTOSIS 1+; NUCLEATED RED BLOOD CELLS 2 /100 WBC; PLATELET ESTIMATE SLIGHTLY DECREASED
[2023-03-13] MEDS: PANTOPRAZOLE SODIUM 40 MG/VIAL IV SCH (09:57)
[2023-03-13] MEDS: ASPIRIN 81MG TABLET PO SCH (09:57)
[2023-03-13] MEDS: TICAGRELOR 90 MG TABLET PO SCH ×2 (09:57→17:00)
[2023-03-13] MEDS ORDERED: METOPROLOL SUCCINATE 50MG ER TABLET PO SCH (11:00)
[2023-03-13] MEDS ORDERED: FUROSEMIDE 100MG/10ML VIAL IVP NR (11:00)
[2023-03-13] MEDS: ACETAMINOPHEN 325MG TABLET PO PRN ×2 (13:37→18:41)
[2023-03-13] MEDS ORDERED: MEROPENEM 500 MG in SODIUM CHLORIDE 0.9% 50 ML IV SCH (21:00)
== END 2023-03-13 21:32 | disposition short-term general hospital (02) | DRG 853 ==
LOC: ER 10:11 → CVICU 11:19
PROVIDERS: ADMIT Internal Medicine; ATTEND Internal Medicine
PROC: 02HV33Z Insertion of Infusion Device into Superior Vena Cava, Percutaneous Approach (ICD-10-PCS; principal; 2023-03-07)
PROC: 027034Z Dilation of Coronary Artery, One Artery with Drug-eluting Intraluminal Device, Percutaneous Approach (ICD-10-PCS; 2023-03-07)
PROC: 0BH17EZ Insertion of Endotracheal Airway into Trachea, Via Natural or Artificial Opening (ICD-10-PCS; 2023-03-07)
PROC: B2111ZZ Fluoroscopy of Multiple Coronary Arteries using Low Osmolar Contrast (ICD-10-PCS; 2023-03-07)
PROC: B240ZZ3 Ultrasonography of Single Coronary Artery, Intravascular (ICD-10-PCS; 2023-03-07)
PROC: B548ZZA Ultrasonography of Superior Vena Cava, Guidance (ICD-10-PCS; 2023-03-07)
PROC: 5A12012 Performance of Cardiac Output, Single, Manual (ICD-10-PCS; 2023-03-07)
PROC: 5A1955Z Respiratory Ventilation, Greater than 96 Consecutive Hours (ICD-10-PCS; 2023-03-07)
PROC: 30233N1 Transfusion of Nonautologous Red Blood Cells into Peripheral Vein, Percutaneous Approach (ICD-10-PCS; 2023-03-08)
PROC: 05HM33Z Insertion of Infusion Device into Right Internal Jugular Vein, Percutaneous Approach (ICD-10-PCS; 2023-03-09)
DX: A41.9 Sepsis, unspecified organism (principal); E43 Unspecified severe protein-calorie malnutrition; I21.09 ST elevation (STEMI) myocardial infarction involving other coronary artery of anterior wall; G93.41 Metabolic encephalopathy; I46.9 Cardiac arrest, cause unspecified; I49.01 Ventricular fibrillation; J96.01 Acute respiratory failure with hypoxia; J69.0 Pneumonitis due to inhalation of food and vomit; R57.0 Cardiogenic shock; I50.21 Acute systolic (congestive) heart failure; K72.00 Acute and subacute hepatic failure without coma; N17.0 Acute kidney failure with tubular necrosis; R65.21 Severe sepsis with septic shock; N18.4 Chronic kidney disease, stage 4 (severe); I47.20 Ventricular tachycardia, unspecified; M62.82 Rhabdomyolysis; E72.20 Disorder of urea cycle metabolism, unspecified; D68.9 Coagulation defect, unspecified; I13.0 Hypertensive heart and chronic kidney disease with heart failure and stage 1 through stage 4 chronic kidney disease, or unspecified chronic kidney disease; Z20.822 Contact with and (suspected) exposure to COVID-19; D64.9 Anemia, unspecified; Z68.29 Body mass index [BMI] 29.0-29.9, adult; E78.5 Hyperlipidemia, unspecified; K80.20 Calculus of gallbladder without cholecystitis without obstruction; K76.0 Fatty (change of) liver, not elsewhere classified; N32.9 Bladder disorder, unspecified; R73.03 Prediabetes; Z78.1 Physical restraint status; Z79.02 Long term (current) use of antithrombotics/antiplatelets; Z79.82 Long term (current) use of aspirin; Z82.49 Family history of ischemic heart disease and other diseases of the circulatory system; Z85.528 Personal history of other malignant neoplasm of kidney
CPT/HCPCS: 36415; 36556; 36573; 36600; 70551; 71045; 75635; 76705; 76770; 76856; 76937; 80048; 80053; 80061; 80076; 80202; 81003; 82140; 82375; 82550; 82553; 82607; 82746; 82805; 82962; 83036; 83540; 83550; 83605; 83735; 83880; 84100; 84145; 84443; 84484; 84703; 85014; 85018; 85025; 85347; 85362; 85379; 85384; 86705; 86709; 86803; 86850; 86900; 86920; 87070; 87340; 87426; 90935; 93005; 93306; 93923; 93970; 94002; 94003; 94640; 99291; C1725; C1752; C9113; J0282; J1265; J1327; J1644; J1650; J1815; J1940; J2060; J2185; J2250; J2270; J2370; J2543; J2765; J2920; J3010; J3370; J3480; J3490; J7030; J7050; J7060; P9016; P9047; Q9963; Q9967; A4315; J8499

== ENCOUNTER 2023-12-06 02:21 | Inpatient (IN) | payer OTHER ==
[2023-12-06] VITALS (62 sets, daily range): BP systolic 85–171; BP diastolic 57–133; PULSE 56–102; RESP 13–26; TEMP 97.4–98.5
[~2023-12-06] VITALS: Ht 160 cm; Wt 66.7 kg
[~2023-12-06 02:21] MED LIST: AMLO5TAB88 PO
[2023-12-06] MEDS: ALBUTEROL (0.083%) 2.5MG/3ML NEB HHN STA (02:57)
[2023-12-06] MEDS: IPRATROPIUM BROMIDE (0.02%) 0.5MG/2.5ML NEB HHN STA (02:57)
[2023-12-06] MEDS ORDERED: EPINEPHRINE 1:1000 1 MG/ML AMP SUBCUT ONE (03:00)
[2023-12-06] MEDS: ETOMIDATE 2MG/ML 10ML VIAL IV ONE (03:09)
[2023-12-06] MEDS: SUCCINYLCHOLINE CHLORIDE 200MG/10ML IV ONE (03:09)
[2023-12-06] MEDS: METHYLPREDNISOLONE SOD SUCC 125MG/2ML (ACT-O-VIAL) IV STA (03:10)
[2023-12-06] MEDS: PROPOFOL 10MG/ML 100ML 100 ML IV ONE (03:25)
[2023-12-06 03:35] LABS: BG BASE EXCESS -3.6 mmol/L (-2.0-2.0); BG CARBOXYHEMOGLOBIN 0.3 % (0.5-1.5); BG DEOXYHEMOGLOBIN 0.2 % (0.0-5.0); BG FRACTION INSPIRED OXYGEN 100; BG HCO3 ACT 20.8 mmol/L (22.0-26.0); BG METHEMOGLOBIN 0.3 % (0.0-1.5); BG OXYGEN SATURATION 99.8 % (92.0-98.5); BG OXYHEMOGLOBIN 99.2 % (94.0-97.0); BG PCO2 35.3 mmHg (35.0-45.0); BG PH 7.388 (7.350-7.450); BG PO2 278.6 mmHg (75.0-100.0); BG SAMPLE SITE LEFT RADIAL; BG TOTAL HEMOGLOBIN 12.1 g/dL (12.0-18.0); BG VENT MODE VENT - AC
[2023-12-06 03:47] LABS: HEMATOCRIT. 34.4 % (36.0-48.0); HEMOGLOBIN. 10.9 g/dL (12.0-16.0); MEAN CORPUSCULAR HEMOGLOBIN 30.2 pg (28.0-32.0); MEAN CORPUSCULAR HGB CONC 31.8 g/dL (31.0-37.0); MEAN CORPUSCULAR VOLUME 95.1 fL (81.0-99.0); MEAN PLATELET VOLUME 9.8 fl (7.4-10.4); PLATELET 327 x1000/uL (130-400); RED BLOOD CELL COUNT 3.61 mill/uL (4.2-5.4); RED CELL DISTRIBUTION WIDTH 16.7 % (11.6-14.6); WHITE BLOOD COUNT 10.9 x1000/uL (4.5-11.0)
[2023-12-06 03:50] LABS: DIFFERENTIAL COMMENT 1
[2023-12-06 03:52] LABS: CHLORIDE 103 mEq/L (98-107); POTASSIUM 3.2 mEq/L (3.5-5.1); SODIUM 142 mEq/L (136-145)
[2023-12-06 03:53] LABS: CALCIUM 8.6 mg/dL (8.7-10.4); CARBON DIOXIDE 24 mEq/L (21-32)
[2023-12-06 03:58] LABS: CREATININE 1.4 mg/dL (0.6-1.0); GLUCOSE 390 mg/dL (70-105); INR 0.9; PARTIAL THROMBOPLASTIN TIME < 21.0 sec (23.4-31.0); PROTHROMBIN TIME 10.1 sec (9.6-11.0); UREA NITROGEN BLOOD 24 mg/dL (9-23)
[2023-12-06] MEDS ORDERED: EPINEPHRINE 5 MG in SODIUM CHLORIDE 0.9% 245 ML IV PRN (04:00)
[2023-12-06 04:06] LABS: LACTIC ACID 7.1 mmol/L (0.4-2.0)
[2023-12-06 04:07] LABS: ETHANOL BLOOD < 10 mg/dL (<10); TROPONIN I HIGH SENSITIVITY 105 ng/L (3.0-34)
[2023-12-06] MEDS ORDERED: EPINEPHRINE 5 MG in SODIUM CHLORIDE 0.9% 250 ML IV PRN (04:15)
[2023-12-06] MEDS: SODIUM CHLORIDE 0.9% 1000ML BAG (SEPSIS BOLUS) IV NR (05:15)
[2023-12-06] MEDS: VANCOMYCIN 1.5GM/250ML 250 ML IV SCH (06:16)
[2023-12-06] MEDS ORDERED: CLONIDINE 0.1MG TABLET PO PRN (06:45)
[2023-12-06] MEDS ORDERED: GUAIFENESIN 200MG/10ML SUGAR FREE UDC PO PRN (06:45)
[2023-12-06] MEDS ORDERED: DOCUSATE SODIUM 100MG CAPSULE PO PRN (06:45)
[2023-12-06] MEDS ORDERED: MAGNESIUM/ALUMINUM HYDROXIDE/SIMETHICONE 30ML UDC PO PRN (06:45)
[2023-12-06] MEDS ORDERED: IPRATROPIUM/ALBUTEROL 0.5-3(2.5)MG/3ML NEB NEB PRN (06:45)
[2023-12-06] MEDS ORDERED: NITROGLYCERIN 0.4MG TABLET SL SL PRN (06:45)
[2023-12-06] MEDS ORDERED: ACETAMINOPHEN 325MG TABLET PO PRN ×2 (06:45)
[2023-12-06] MEDS ORDERED: ONDANSETRON HCL 4MG/2ML INJ IV PRN (06:45)
[2023-12-06 08:03] LABS: IRON 94 ug/dL (50-170)
[2023-12-06 08:04] LABS: TRIGLYCERIDE 119 mg/dL (0-150)
[2023-12-06 08:05] LABS: LDL CHOLESTEROL 45 mg/dL (5-100)
[2023-12-06 08:06] LABS: CHOLESTEROL 122 mg/dL (<200); HDL CHOLESTEROL 55 mg/dL (>65); TOTAL IRON BINDING CAPACITY 182 ug/dl (250-425)
[2023-12-06 08:08] LABS: T4 FREE 1.26 ng/dL (0.89-1.76); THYROID STIMULATING HORMONE 0.76 uIU/mL (0.55-4.78)
[2023-12-06] MEDS: IPRATROPIUM/ALBUTEROL 0.5-3(2.5)MG/3ML NEB HHN SCH (08:12)
[2023-12-06 08:25] LABS: FOLIC ACID (FOLATE) SERUM 10.74 ng/mL (>5.38)
[2023-12-06] MEDS ORDERED: MEROPENEM 1,000 MG in SODIUM CHLORIDE 0.9% 100 ML IV SCH (09:00)
[2023-12-06] MEDS ORDERED: ETOMIDATE 2MG/ML 10ML VIAL IV ONE (09:00)
[2023-12-06] MEDS: METHYLPREDNISOLONE SOD SUCC 125MG/2ML (ACT-O-VIAL) IV SCH (10:09)
[2023-12-06] MEDS: ASPIRIN 81MG EC TABLET PO SCH (10:09)
[2023-12-06] MEDS: KCL 20MEQ/100ML PREMIX 100 ML IV NR (10:10)
[2023-12-06] MEDS: ENOXAPARIN 40MG/0.4ML SYR SUBCUT SCH (10:10)
[2023-12-06] MEDS: DEXT 5%/LACTATED RINGERS 1,000 ML IV SCH (10:10)
[2023-12-06] MEDS: PANTOPRAZOLE SODIUM 40 MG/VIAL IV SCH (10:10)
[2023-12-06] MEDS ORDERED: PROPOFOL 10MG/ML 100ML 100 ML IV PRN ×2 (10:30→11:15)
[2023-12-06] MEDS: LACTATED RINGERS 1,000 ML IV NR (10:44)
[2023-12-06] MEDS: MEROPENEM 1G/100ML 100 ML IV NR (10:44)
[2023-12-06] MEDS: NOREPINEPHRINE 8MG/250ML PMX 250 ML IV PRN (10:45)
[2023-12-06 12:16] LABS: PLATELET ESTIMATE NORMAL
[2023-12-06] MEDS: PROPOFOL 10MG/ML 100ML 100 ML IV PRN (12:22)
[2023-12-06] MEDS ORDERED: IOHEXOL-350 100 ML BOTTLE ONE (13:03)
[2023-12-06] MEDS ORDERED: DEXTROSE 50% WATER 50ML SYRINGE IV PRN (14:45)
[2023-12-06 16:02] LABS: CREATINE KINASE MB FRACTION 6.2 ng/mL (0.5-3.6)
[2023-12-06] MEDS: BLOOD SUGAR DIAGNOSTIC STRIP TEST SCH (16:30)
[2023-12-06] MEDS: INSULIN LISPRO 100 UNITS/ML SUBCUT SCH (17:36)
[2023-12-06 17:47] LABS: VITAMIN B12 SERUM 507 pg/mL (211-911)
[2023-12-06] MEDS ORDERED: SULF473O11 MT (19:21)
[2023-12-06] MEDS ORDERED: FURO40TA5 PO (19:21)
[2023-12-06] MEDS ORDERED: ATOR10TA69 PO (19:21)
[2023-12-06] MEDS ORDERED: SPIR25TA6 PO (19:21)
[2023-12-06] MEDS ORDERED: EMPA25TA PO (19:21)
[2023-12-06] MEDS ORDERED: CLOP75TA33 PO (19:21)
[2023-12-06] MEDS ORDERED: PRED10TA23 PO (19:21)
[2023-12-06] MEDS ORDERED: FAMO40TA7 PO (19:21)
[2023-12-06] MEDS ORDERED: ASPI-1497 PO (19:21)
[2023-12-06] MEDS: MEROPENEM 1G/100ML IV SCH (22:34)
[2023-12-06 23:16] LABS: CREATINE KINASE MB FRACTION 4.3 ng/mL (0.5-3.6)
[2023-12-07] VITALS (64 sets, daily range): BP systolic 77–126; BP diastolic 56–100; PULSE 53–110; RESP 14–25; TEMP 97.4–97.8; O2SAT 100
[2023-12-07 01:37] LABS: BG CARBOXYHEMOGLOBIN 0.3 % (0.5-1.5); BG FRACTION INSPIRED OXYGEN 40; BG METHEMOGLOBIN 0.3 % (0.0-1.5); BG OXYHEMOGLOBIN 98.4 % (94.0-97.0); BG PCO2 25.2 mmHg (35.0-45.0); BG PH 7.579 (7.350-7.450); BG PO2 160.7 mmHg (75.0-100.0); BG SAMPLE SITE RIGHT BRACHIAL; BG TOTAL HEMOGLOBIN 10.9 g/dL (12.0-18.0); BG VENT MODE VENT - AC
[2023-12-07] MEDS: PIPERACILLIN/TAZO 3.375G/50ML 50 ML IV SCH (05:28)
[2023-12-07] MEDS: VANCOMYCIN 1GM/200ML PMX (BAXTER) IV SCH ×2 (05:35→08:36)
[2023-12-07 05:42] LABS: CHLORIDE 114 mEq/L (98-107); POTASSIUM 3.1 mEq/L (3.5-5.1); SODIUM 147 mEq/L (136-145)
[2023-12-07 05:43] LABS: CALCIUM 8.9 mg/dL (8.7-10.4); CARBON DIOXIDE 24 mEq/L (21-32)
[2023-12-07 05:48] LABS: GLUCOSE 157 mg/dL (70-105); TRIGLYCERIDE 130 mg/dL (0-150)
[2023-12-07 05:49] LABS: UREA NITROGEN BLOOD 15 mg/dL (9-23)
[2023-12-07 05:50] LABS: ALANINE AMINOTRANSFERASE 108 IU/L (10-49); ALBUMIN 3.4 g/dL (3.2-4.8); ASPARTATE AMINOTRANSFERASE 37 IU/L (<34); PHOSPHORUS 3.2 mg/dL (2.5-4.9)
[2023-12-07 05:51] LABS: BILIRUBIN TOTAL 0.5 mg/dL (0.1-1.0); PROTEIN TOTAL 5.1 g/dL (6.0-8.3)
[2023-12-07 05:57] LABS: HEMATOCRIT. 30.4 % (36.0-48.0); HEMOGLOBIN. 9.8 g/dL (12.0-16.0); MEAN CORPUSCULAR HGB CONC 32.3 g/dL (31.0-37.0); MEAN CORPUSCULAR VOLUME 92.9 fL (81.0-99.0); MEAN PLATELET VOLUME 9.9 fl (7.4-10.4); PLATELET 301 x1000/uL (130-400); RED BLOOD CELL COUNT 3.28 mill/uL (4.2-5.4); RED CELL DISTRIBUTION WIDTH 16.8 % (11.6-14.6); WHITE BLOOD COUNT 23.3 x1000/uL (4.5-11.0)
[2023-12-07 06:13] LABS: DIFFERENTIAL COMMENT 1
[2023-12-07] MEDS ORDERED: POTASSIUM CHLORIDE 20 MEQ in DEXT 5% WATER 90 ML IV ONE (07:30)
[2023-12-07] MEDS: KCL 20MEQ/100ML PREMIX 100 ML IV NR (08:37)
[2023-12-07 10:42] LABS: ANISOCYTOSIS 1+; PLATELET ESTIMATE NORMAL
[2023-12-07 10:45] LABS: BG CARBOXYHEMOGLOBIN 0.2 % (0.5-1.5); BG DEOXYHEMOGLOBIN 0.8 % (0.0-5.0); BG FRACTION INSPIRED OXYGEN 35; BG HCO3 ACT 19.7 mmol/L (22.0-26.0); BG METHEMOGLOBIN 0.3 % (0.0-1.5); BG OXYGEN SATURATION 99.2 % (92.0-98.5); BG OXYHEMOGLOBIN 98.7 % (94.0-97.0); BG PO2 164.8 mmHg (75.0-100.0); BG SAMPLE SITE LEFT RADIAL; BG TOTAL HEMOGLOBIN 10.6 g/dL (12.0-18.0); BG VENT MODE VENT - AC
[2023-12-07] MEDS ORDERED: DOPAMINE 400MG/250ML PREMIX 250 ML IV PRN (11:00)
[2023-12-07] MEDS: LACTATED RINGERS 1,000 ML IV ONE (12:21)
[2023-12-07] MEDS: VANCOMYCIN 750MG PREMIX 150 ML IV SCH (12:34)
[2023-12-07] MEDS: MEROPENEM 1G/100ML IV SCH (16:16)
[2023-12-07] MEDS ORDERED: ATORVASTATIN CALCIUM 10MG TABLET PO SCH (21:00)
[2023-12-08] MEDS ORDERED: VANCOMYCIN 750MG PREMIX 150 ML IV SCH (09:00)
== END 2023-12-07 19:20 | disposition short-term general hospital (02) | DRG 871 ==
LOC: ER 02:21 → MICUNO 04:25
PROVIDERS: ADMIT Internal Medicine; ATTEND Internal Medicine
PROC: 5A1935Z Respiratory Ventilation, Less than 24 Consecutive Hours (ICD-10-PCS; principal; 2023-12-06)
PROC: 0BH17EZ Insertion of Endotracheal Airway into Trachea, Via Natural or Artificial Opening (ICD-10-PCS; 2023-12-06)
DX: A41.89 Other specified sepsis (principal); I21.4 Non-ST elevation (NSTEMI) myocardial infarction; I50.23 Acute on chronic systolic (congestive) heart failure; I46.9 Cardiac arrest, cause unspecified; J96.01 Acute respiratory failure with hypoxia; R65.21 Severe sepsis with septic shock; J18.9 Pneumonia, unspecified organism; E87.20 Acidosis, unspecified; I96 Gangrene, not elsewhere classified; N17.9 Acute kidney failure, unspecified; D63.8 Anemia in other chronic diseases classified elsewhere; E66.9 Obesity, unspecified; E83.51 Hypocalcemia; E87.6 Hypokalemia; I11.0 Hypertensive heart disease with heart failure; Z20.822 Contact with and (suspected) exposure to COVID-19; I25.10 Atherosclerotic heart disease of native coronary artery without angina pectoris; I77.6 Arteritis, unspecified; J45.909 Unspecified asthma, uncomplicated; Z98.61 Coronary angioplasty status; Z68.26 Body mass index [BMI] 26.0-26.9, adult
CPT/HCPCS: 36415; 36600; 71045; 71275; 80048; 80053; 80061; 80320; 82375; 82550; 82553; 82607; 82746; 82805; 82962; 83036; 83540; 83550; 83605; 83735; 83880; 84100; 84145; 84439; 84443; 84478; 84484; 85025; 85379; 87070; 87426; 87804; 93005; 93306; 93923; 93970; 94002; 94003; 94640; 94644; 99291; J0330; J1265; J1650; J1815; J2185; J2704; J2919; J3370; J3480; J3490; J7050; Q9967; G0480

== ENCOUNTER 2024-03-14 11:23 | Inpatient (IN) | payer OTHER ==
[~2024-03-14] VITALS: Ht 160 cm; Wt 68.0 kg
[2024-03-14] VITALS (8 sets, daily range): BP systolic 136; BP diastolic 88; PULSE 68–69; RESP 18–26; TEMP 37.39188; O2SAT 97–100
[~2024-03-14 11:23] MED LIST changes: +ASPI-1497 PO; +ATOR10TA69 PO; +CLOP75TA33 PO; +EMPA25TA PO; +FAMO40TA7 PO; +FURO40TA5 PO; +PRED10TA23 PO; +SPIR25TA6 PO; +SULF473O11 MT
[2024-03-14] MEDS ORDERED: ACETAMINOPHEN 650MG/20.3ML UDC NG PRN (12:00)
[2024-03-14] MEDS ORDERED: ACETAMINOPHEN 650MG SUPP PR PRN (12:00)
[2024-03-14 12:01] LABS: HEMATOCRIT. 29.7 % (36.0-48.0); HEMOGLOBIN. 9.1 g/dL (12.0-16.0); MEAN CORPUSCULAR HEMOGLOBIN 36.1 pg (28.0-32.0); MEAN CORPUSCULAR HGB CONC 30.5 g/dL (31.0-37.0); MEAN CORPUSCULAR VOLUME 118.5 fL (81.0-99.0); PLATELET 249 x1000/uL (130-400); RED BLOOD CELL COUNT 2.51 mill/uL (4.2-5.4); RED CELL DISTRIBUTION WIDTH 18.9 % (11.6-14.6)
[2024-03-14 12:08] LABS: CARBON DIOXIDE 19 mEq/L (21-32); CHLORIDE 109 mEq/L (98-107); POTASSIUM 4.5 mEq/L (3.5-5.1); SODIUM 141 mEq/L (136-145)
[2024-03-14 12:09] LABS: CALCIUM 8.3 mg/dL (8.7-10.4)
[2024-03-14 12:11] LABS: INR 0.9; PROTHROMBIN TIME 10.4 sec (9.6-11.0)
[2024-03-14 12:13] LABS: CREATININE 1.3 mg/dL (0.6-1.0)
[2024-03-14 12:14] LABS: DIFFERENTIAL COMMENT 1; GLUCOSE 309 mg/dL (70-105); UREA NITROGEN BLOOD 28 mg/dL (9-23)
[2024-03-14] MEDS: PROPOFOL 10MG/ML 100ML 100 ML IV PRN (12:15)
[2024-03-14 12:16] LABS: PHOSPHORUS 7.1 mg/dL (2.5-4.9)
[2024-03-14] MEDS: NOREPINEPHRINE 8MG/250ML PMX 250 ML IV PRN (12:21)
[2024-03-14 12:22] LABS: LACTIC ACID 9.8 mmol/L (0.4-2.0)
[2024-03-14] MEDS: SODIUM CHLORIDE 0.9% 1000ML BAG (SEPSIS BOLUS) IV ONE (12:23)
[2024-03-14 12:24] LABS: TROPONIN I HIGH SENSITIVITY 104 ng/L (3.0-34)
[2024-03-14 12:52] LABS: BG BASE EXCESS -6.3 mmol/L (-2.0-3.0); BG CARBOXYHEMOGLOBIN 0.8 % (0.5-1.5); BG DEOXYHEMOGLOBIN 0.6 % (0.0-5.0); BG FRACTION INSPIRED OXYGEN 100; BG HCO3 ACT 19.9 mmol/L (21.0-28.0); BG METHEMOGLOBIN 1.8 % (0.5-1.5); BG OXYGEN SATURATION 99.4 % (94.0-98.0); BG OXYHEMOGLOBIN 96.8 % (94.0-98.0); BG PH 7.284 (7.350-7.450); BG PO2 301.3 mmHg (83.0-108.0); BG SAMPLE SITE RIGHT BRACHIAL; BG TOTAL HEMOGLOBIN 8.8 g/dL (12.0-16.0); BG VENT MODE VENT - AC
[2024-03-14] MEDS ORDERED: MIDAZOLAM 100MG/100ML PMX 100 ML IV ONE (13:00)
[2024-03-14] MEDS ORDERED: GUAIFENESIN 200MG/10ML SUGAR FREE UDC PO PRN (13:45)
[2024-03-14] MEDS ORDERED: ONDANSETRON HCL 4MG/2ML INJ IV PRN (13:45)
[2024-03-14] MEDS ORDERED: DOCUSATE SODIUM 100MG CAPSULE PO PRN (13:45)
[2024-03-14] MEDS ORDERED: CLONIDINE 0.1MG TABLET PO PRN (13:45)
[2024-03-14] MEDS: MIDAZOLAM 100MG/100ML PMX 100 ML IV PRN (13:45)
[2024-03-14] MEDS ORDERED: MAGNESIUM/ALUMINUM HYDROXIDE/SIMETHICONE 30ML UDC PO PRN (13:45)
[2024-03-14] MEDS ORDERED: DEXTROSE 50% WATER 50ML SYRINGE IV PRN (14:15)
[2024-03-14] MEDS ORDERED: PIPERACILLIN/TAZO 3.375G/50ML 50 ML IV ONE (14:15)
[2024-03-14] MEDS: PIPERACILLIN/TAZO 3.375G/50ML 50 ML IV ONE (14:15)
[2024-03-14 14:19] LABS: NUCLEATED RED BLOOD CELLS 20 /100 WBC; PLATELET ESTIMATE NORMAL
[2024-03-14 14:20] LABS: ANISOCYTOSIS 1+
[2024-03-14] MEDS ORDERED: METHYLPREDNISOLONE SOD SUCC 40MG/ML (ACT-O-VIAL) IV SCH ×2 (14:30→22:00)
[2024-03-14] MEDS: PANTOPRAZOLE SODIUM 40 MG/VIAL IV SCH (15:23)
[2024-03-14] MEDS: METHYLPREDNISOLONE SOD SUCC 125MG/2ML (ACT-O-VIAL) IV ONE (15:23)
[2024-03-14] MEDS: DEXT 5%/LACTATED RINGERS 1,000 ML IV ONE (15:23)
[2024-03-14] MEDS: CEFTRIAXONE 2GM/50ML 50 ML IV SCH (15:36)
[2024-03-14] MEDS: AZITHROMYCIN 500MG/250ML 250 ML IV SCH (15:57)
[2024-03-14 16:35] LABS: TRIGLYCERIDE 160 mg/dL (0-150)
[2024-03-14 16:36] LABS: LDL CHOLESTEROL 44 mg/dL (5-100)
[2024-03-14 16:37] LABS: ASPARTATE AMINOTRANSFERASE 64 IU/L (<34); BILIRUBIN TOTAL 1.6 mg/dL (0.1-1.0); CHOLESTEROL 123 mg/dL (<200); HDL CHOLESTEROL 56 mg/dL (>65)
[2024-03-14 16:39] LABS: ETHANOL BLOOD < 10 mg/dL (<10); TROPONIN I HIGH SENSITIVITY 431 ng/L (3.0-34)
[2024-03-14] MEDS: LEVETIRACETAM 1000MG PREMIX 100 ML IV SCH (16:40)
[2024-03-14 16:57] LABS: FERRITIN 1151 ng/mL (10-291); FOLIC ACID (FOLATE) SERUM > 20.00 ng/mL (>5.38)
[2024-03-14 16:58] LABS: VITAMIN B12 SERUM 576 pg/mL (211-911)
[2024-03-14] MEDS: BLOOD SUGAR DIAGNOSTIC STRIP TEST SCH (17:49)
[2024-03-14] MEDS ORDERED: IPRATROPIUM/ALBUTEROL 0.5-3(2.5)MG/3ML NEB HHN SCH (18:00)
[2024-03-14 18:31] LABS: INR 0.9; IRON 25 ug/dL (50-170); PARTIAL THROMBOPLASTIN TIME 26.7 sec (23.4-31.0); PROTHROMBIN TIME 10.3 sec (9.6-11.0)
[2024-03-14 18:33] LABS: CREATINE KINASE MB FRACTION 12.5 ng/mL (0.5-3.6)
[2024-03-14 18:34] LABS: TOTAL IRON BINDING CAPACITY 200 ug/dl (250-425)
[2024-03-14 19:05] LABS: LACTIC ACID 6.2 mmol/L (0.4-2.0)
[2024-03-14] MEDS: INSULIN LISPRO 100 UNITS/ML SUBCUT SCH (19:12)
[2024-03-14 19:46] LABS: TROPONIN I HIGH SENSITIVITY 582 ng/L (3.0-34)
[2024-03-14] MEDS ORDERED: ATORVASTATIN CALCIUM 10MG TABLET PO SCH (21:00)
[2024-03-14 23:22] LABS: CREATINE KINASE MB FRACTION 12.7 ng/mL (0.5-3.6)
[2024-03-15] VITALS (81 sets, daily range): BP systolic 68–153; BP diastolic 48–100; PULSE 65–137; RESP 15–39; TEMP 36.418–37.39188; O2SAT 97–100
[2024-03-15] MEDS ORDERED: MIDAZOLAM 100MG/100ML PMX 100 ML IV PRN
[2024-03-15] MEDS: NOREPINEPHRINE 8MG/250ML PMX 250 ML IV SCH (00:31)
[2024-03-15] MEDS: IPRATROPIUM/ALBUTEROL 0.5-3(2.5)MG/3ML NEB HHN SCH (00:32)
[2024-03-15] MEDS: METHYLPREDNISOLONE SOD SUCC 40MG/ML (ACT-O-VIAL) IV SCH (03:24)
[2024-03-15] MEDS: LEVETIRACETAM 1000MG PREMIX 100 ML IV SCH (03:48)
[2024-03-15 05:39] LABS: CARBON DIOXIDE 21 mEq/L (21-32); CHLORIDE 117 mEq/L (98-107); POTASSIUM 3.7 mEq/L (3.5-5.1); SODIUM 147 mEq/L (136-145)
[2024-03-15 05:40] LABS: CALCIUM 8.5 mg/dL (8.7-10.4)
[2024-03-15 05:44] LABS: CREATININE 0.9 mg/dL (0.6-1.0); GLUCOSE 178 mg/dL (70-105)
[2024-03-15 05:45] LABS: LDL CHOLESTEROL 42 mg/dL (5-100); TRIGLYCERIDE 98 mg/dL (0-150); UREA NITROGEN BLOOD 21 mg/dL (9-23)
[2024-03-15 05:46] LABS: ALANINE AMINOTRANSFERASE 55 IU/L (10-49); ALBUMIN 3.1 g/dL (3.2-4.8); ASPARTATE AMINOTRANSFERASE 33 IU/L (<34); CHOLESTEROL 115 mg/dL (<200)
[2024-03-15 05:47] LABS: BILIRUBIN DIRECT 0.3 mg/dL (<=3.0); BILIRUBIN TOTAL 0.8 mg/dL (0.1-1.0); HDL CHOLESTEROL 54 mg/dL (>65); PHOSPHORUS 3.3 mg/dL (2.5-4.9); PROTEIN TOTAL 4.9 g/dL (6.0-8.3)
[2024-03-15 05:49] LABS: T4 FREE 1.34 ng/dL (0.89-1.76); THYROID STIMULATING HORMONE 0.18 uIU/mL (0.55-4.78)
[2024-03-15 06:32] LABS: HEMATOCRIT. 23.8 % (36.0-48.0); HEMOGLOBIN. 7.8 g/dL (12.0-16.0); MEAN CORPUSCULAR HEMOGLOBIN 37.6 pg (28.0-32.0); MEAN CORPUSCULAR HGB CONC 32.9 g/dL (31.0-37.0); MEAN CORPUSCULAR VOLUME 114.1 fL (81.0-99.0); MEAN PLATELET VOLUME 8.8 fl (7.4-10.4); PLATELET 178 x1000/uL (130-400); RED BLOOD CELL COUNT 2.09 mill/uL (4.2-5.4); RED CELL DISTRIBUTION WIDTH 18.2 % (11.6-14.6)
[2024-03-15 06:37] LABS: DIFFERENTIAL COMMENT 1
[2024-03-15 06:39] LABS: WHITE BLOOD COUNT 1.4 x1000/uL (4.5-11.0)
[2024-03-15 08:08] LABS: BG BASE EXCESS -3.9 mmol/L (-2.0-3.0); BG CARBOXYHEMOGLOBIN 1.1 % (0.5-1.5); BG DEOXYHEMOGLOBIN 1.1 % (0.0-5.0); BG FRACTION INSPIRED OXYGEN 35; BG HCO3 ACT 19.3 mmol/L (21.0-28.0); BG METHEMOGLOBIN 1.4 % (0.5-1.5); BG OXYGEN SATURATION 98.9 % (94.0-98.0); BG OXYHEMOGLOBIN 96.4 % (94.0-98.0); BG PCO2 27.2 mmHg (32.0-45.0); BG PH 7.468 (7.350-7.450); BG PO2 154.1 mmHg (83.0-108.0); BG SAMPLE SITE RIGHT RADIAL; BG TOTAL HEMOGLOBIN 7.2 g/dL (12.0-16.0); BG VENT MODE VENT - AC/VC
[2024-03-15] MEDS: MULTIVITAMINS,THER W-MINERALS TABLET PO SCH (09:14)
[2024-03-15] MEDS: ASPIRIN 81MG TABLET PO SCH (09:14)
[2024-03-15] MEDS: FOLIC ACID 1MG TABLET PO SCH (09:14)
[2024-03-15] MEDS: THIAMINE HCL 100MG TABLET PO SCH (09:15)
[2024-03-15] MEDS: CLOPIDOGREL 75MG TABLET PO SCH (09:15)
[2024-03-15] MEDS: DEXT 5%/0.9% NACL 1,000 ML IV SCH (13:10)
[2024-03-15] MEDS: MIDODRINE HCL 5MG TABLET PO SCH (13:10)
[2024-03-15 14:54] LABS: CLARITY URINE TURBID (CLEAR); COLOR URINE YELLOW (YELLOW); GLUCOSE URINE 3+ (NEGATIVE); KETONES URINE NEGATIVE (NEGATIVE); LEUKOCYTE ESTERASE URINE NEGATIVE (NEGATIVE); NITRITE URINE POSITIVE (NEGATIVE); OCCULT BLOOD URINE 1+ (NEGATIVE); PH URINE 5.5 (4.5-8.0); PROTEIN URINE 1+ (NEGATIVE); SPECIFIC GRAVITY URINE 1.021 (1.005-1.030); UROBILINOGEN URINE 0.2 E.U./dL (0.2-1.0)
[2024-03-15 15:13] LABS: BACTERIA URINE 4+; SQUAMOUS EPITHELIAL CELL URINE RARE /lpf (RARE/1+)
[2024-03-15 15:14] LABS: URIC ACID CRYSTALS URINE 1+ /lpf
[2024-03-15 15:15] LABS: WBC URINE 25-50 /hpf (0-2)
[2024-03-15 15:16] LABS: *AMPHETAMINES SCREEN URINE NEGATIVE (NEGATIVE); *BARBITURATES SCREEN URINE NEGATIVE (NEGATIVE); *BENZODIAZEPINES SCREEN URINE PRESUMPTIVE POSITIVE (NEGATIVE); *COCAINE SCREEN URINE NEGATIVE (NEGATIVE); CANNABINOID URINE SCREEN NEGATIVE (NEGATIVE); ECSTASY MDMA SCREEN URINE NEGATIVE (NEGATIVE); METHADONE URINE SCREEN NEGATIVE (NEGATIVE); OPIATES URINE SCREEN NEGATIVE (NEGATIVE); PHENCYCLIDINE URINE SCREEN NEGATIVE (NEGATIVE); RBC URINE 25-50 /hpf (0-2)
[2024-03-15] MEDS: PROPOFOL 10MG/ML 100ML 100 ML IV SCH (15:56)
[2024-03-15 16:03] LABS: NUCLEATED RED BLOOD CELLS 3 /100 WBC
[2024-03-15 16:04] LABS: ANISOCYTOSIS 2+; PLATELET ESTIMATE NORMAL
[2024-03-15] MEDS: CEFTRIAXONE 2GM/50ML 50 ML IV SCH (16:35)
[2024-03-15] MEDS: AZITHROMYCIN 500MG/250ML 250 ML IV SCH (17:25)
[2024-03-15] MEDS ORDERED: INFLUENZA VACCINE 05/PF 0.5 ML SYRINGE IM ONE (21:00)
[2024-03-15] MEDS: ATORVASTATIN CALCIUM 10MG TABLET PO SCH (21:40)
[2024-03-15] MEDS ORDERED: ACETYLCYSTEINE 200MG/ML 20% VIAL 4ML INH SCH (22:30)
[2024-03-16] VITALS (92 sets, daily range): BP systolic 78–147; BP diastolic 47–92; PULSE 71–142; RESP 0–42; TEMP 37.28076–38.892; O2SAT 96–100
[2024-03-16 05:47] LABS: HEMOGLOBIN. 7.2 g/dL (12.0-16.0); MEAN CORPUSCULAR HEMOGLOBIN 36.9 pg (28.0-32.0); MEAN CORPUSCULAR HGB CONC 31.3 g/dL (31.0-37.0); MEAN CORPUSCULAR VOLUME 118.1 fL (81.0-99.0); PLATELET 177 x1000/uL (130-400); RED BLOOD CELL COUNT 1.95 mill/uL (4.2-5.4); RED CELL DISTRIBUTION WIDTH 18.8 % (11.6-14.6)
[2024-03-16 06:36] LABS: DIFFERENTIAL COMMENT 1
[2024-03-16 06:41] LABS: TROPONIN I HIGH SENSITIVITY 99 ng/L (3.0-34)
[2024-03-16] MEDS: ACETYLCYSTEINE 200MG/ML 20% VIAL 4ML INH SCH (09:02)
[2024-03-16] MEDS ORDERED: PROPOFOL 10MG/ML 100ML 100 ML IV PRN (09:45)
[2024-03-16] MEDS ORDERED: VANCOMYCIN 1.25GM PMX (XELLIA) 250 ML IV NR (12:30)
[2024-03-16] MEDS: PIPERACILLIN/TAZO 3.375G/50ML 50 ML IV SCH (13:39)
[2024-03-16] MEDS: VANCOMYCIN 1.25GM/250ML 250 ML IV NR (13:44)
[2024-03-16 15:20] LABS: BG BASE EXCESS -4.6 mmol/L (-2.0-3.0); BG CARBOXYHEMOGLOBIN 2.1 % (0.5-1.5); BG FRACTION INSPIRED OXYGEN 30; BG HCO3 ACT 17.8 mmol/L (21.0-28.0); BG METHEMOGLOBIN 0.3 % (0.5-1.5); BG OXYHEMOGLOBIN 96.6 % (94.0-98.0); BG PH 7.507 (7.350-7.450); BG PO2 160.1 mmHg (83.0-108.0); BG SAMPLE SITE LEFT RADIAL; BG TOTAL HEMOGLOBIN 6.8 g/dL (12.0-16.0); BG VENT MODE VENT - AC
[2024-03-16 16:38] LABS: ANISOCYTOSIS 2+; NUCLEATED RED BLOOD CELLS 2 /100 WBC; PLATELET ESTIMATE BN
[2024-03-16] MEDS ORDERED: SODIUM CHLORIDE 0.9% 250 ML IV NR (17:11)
[2024-03-16 18:19] LABS: HEMATOCRIT 24.1 % (36.0-48.0); HEMOGLOBIN 7.3 g/dL (12.0-16.0); MEAN CORPUSCULAR HGB CONC 30.1 g/dL (31.0-37.0); MEAN CORPUSCULAR VOLUME 119.4 fL (81.0-99.0); PLATELET 174 x1000/uL (130-400); RED BLOOD CELL COUNT 2.02 mill/uL (4.2-5.4); RED CELL DISTRIBUTION WIDTH 18.7 % (11.6-14.6)
[2024-03-16 18:27] LABS: POTASSIUM 4.2 mEq/L (3.5-5.1)
[2024-03-16] MEDS: SODIUM CHLORIDE 0.9% 250 ML IV NR (18:27)
[2024-03-16 18:33] LABS: CREATININE 1.1 mg/dL (0.6-1.0)
[2024-03-16 18:54] LABS: WHITE BLOOD COUNT 1.1 x1000/uL (4.5-11.0)
[2024-03-16] MEDS: EPOETIN ALFA-EPBX 4,000 UNIT/ML VIAL SUBCUT SCH (21:15)
[2024-03-16] MEDS: ACETAMINOPHEN 650MG/20.3ML UDC PO PRN (21:15)
[2024-03-16] MEDS: MIDAZOLAM 100MG/100ML PMX 100 ML IV PRN (22:06)
[2024-03-16] MEDS: SODIUM CHLORIDE 0.9% 1000ML BAG (SEPSIS BOLUS) IV NR (23:15)
[2024-03-17] VITALS (79 sets, daily range): BP systolic 75–142; BP diastolic 51–99; PULSE 62–130; RESP 0–46; TEMP 36.3918–39.05868; O2SAT 95–100
[2024-03-17] MEDS: VANCOMYCIN 750MG PREMIX 150 ML IV SCH (00:10)
[2024-03-17] MEDS: MIDODRINE HCL 5MG TABLET PO SCH (00:14)
[2024-03-17] MEDS: PHENYLEPHRINE 50MG/250ML PMX 250 ML IV PRN (02:53)
[2024-03-17] MEDS: IPRATROPIUM/ALBUTEROL 0.5-3(2.5)MG/3ML NEB HHN PRN (04:20)
[2024-03-17] MEDS: METHYLPREDNISOLONE SOD SUCC 125MG/2ML (ACT-O-VIAL) IV SCH (05:54)
[2024-03-17] MEDS: NITROGLYCERIN OINT 1GM/INCH UDPKT TD SCH (06:00)
[2024-03-17] MEDS: PROPOFOL 10MG/ML 100ML 100 ML IV PRN (06:06)
[2024-03-17 06:52] LABS: HEMATOCRIT. 22.5 % (36.0-48.0); MEAN CORPUSCULAR HEMOGLOBIN 36.3 pg (28.0-32.0); MEAN PLATELET VOLUME 8.7 fl (7.4-10.4); PLATELET 229 x1000/uL (130-400); RED BLOOD CELL COUNT 1.92 mill/uL (4.2-5.4); RED CELL DISTRIBUTION WIDTH 18.7 % (11.6-14.6)
[2024-03-17 07:07] LABS: DIFFERENTIAL COMMENT 1
[2024-03-17 07:23] LABS: CHLORIDE 118 mEq/L (98-107); POTASSIUM 3.6 mEq/L (3.5-5.1); SODIUM 146 mEq/L (136-145)
[2024-03-17 07:24] LABS: CALCIUM 8.3 mg/dL (8.7-10.4); CARBON DIOXIDE 19 mEq/L (21-32)
[2024-03-17 07:27] LABS: UREA NITROGEN BLOOD 21 mg/dL (9-23)
[2024-03-17 07:29] LABS: GLUCOSE 140 mg/dL (70-105); TRIGLYCERIDE 157 mg/dL (0-150)
[2024-03-17 07:30] LABS: ALBUMIN 3.1 g/dL (3.2-4.8)
[2024-03-17 07:31] LABS: ALANINE AMINOTRANSFERASE 99 IU/L (10-49); ASPARTATE AMINOTRANSFERASE 105 IU/L (<34); BILIRUBIN TOTAL 1.3 mg/dL (0.1-1.0); CREATINE KINASE 91 IU/L (34-145); PHOSPHORUS 3.7 mg/dL (2.5-4.9); PROTEIN TOTAL 4.6 g/dL (6.0-8.3)
[2024-03-17 09:02] LABS: BG BASE EXCESS -11.1 mmol/L (-2.0-3.0); BG CARBOXYHEMOGLOBIN 1.1 % (0.5-1.5); BG FRACTION INSPIRED OXYGEN 30; BG HCO3 ACT 12.4 mmol/L (21.0-28.0); BG METHEMOGLOBIN 0.3 % (0.5-1.5); BG OXYGEN SATURATION 94.9 % (94.0-98.0); BG OXYHEMOGLOBIN 93.6 % (94.0-98.0); BG PCO2 20.4 mmHg (32.0-45.0); BG PO2 83.4 mmHg (83.0-108.0); BG SAMPLE SITE LEFT RADIAL; BG TOTAL HEMOGLOBIN 7.6 g/dL (12.0-16.0); BG TOTAL RESPIRATORY RATE 27 b/min; BG VENT MODE VENT - AC
[2024-03-17 14:46] LABS: NUCLEATED RED BLOOD CELLS 23 /100 WBC; PLATELET ESTIMATE NORMAL
[2024-03-19 09:12] LABS: COMPLEMENT C3 98 mg/dL (82-167); COMPLEMENT C4 26 mg/dL (12-38)
[2024-03-19 17:11] LABS: ALDOLASE 24.9 U/L (3.3-10.3)
== END 2024-03-17 16:45 | disposition short-term general hospital (02) | DRG 871 ==
LOC: ER 11:37 → EDBEDREQ 11:54 → CVICU 13:09 → EDBEDREQ 13:14
PROVIDERS: ADMIT Anesthesiology; ATTEND Preventive Medicine Clinical Informatics
PROC: 02HV33Z Insertion of Infusion Device into Superior Vena Cava, Percutaneous Approach (ICD-10-PCS; principal; 2024-03-14)
PROC: B548ZZA Ultrasonography of Superior Vena Cava, Guidance (ICD-10-PCS; 2024-03-14)
PROC: 5A1945Z Respiratory Ventilation, 24-96 Consecutive Hours (ICD-10-PCS; 2024-03-14)
PROC: 0BH17EZ Insertion of Endotracheal Airway into Trachea, Via Natural or Artificial Opening (ICD-10-PCS; 2024-03-14)
DX: A41.9 Sepsis, unspecified organism (principal); G92.8 Other toxic encephalopathy; I46.9 Cardiac arrest, cause unspecified; J96.01 Acute respiratory failure with hypoxia; R65.21 Severe sepsis with septic shock; I21.A1 Myocardial infarction type 2; N17.0 Acute kidney failure with tubular necrosis; J12.9 Viral pneumonia, unspecified; I50.22 Chronic systolic (congestive) heart failure; E11.52 Type 2 diabetes mellitus with diabetic peripheral angiopathy with gangrene; I13.0 Hypertensive heart and chronic kidney disease with heart failure and stage 1 through stage 4 chronic kidney disease, or unspecified chronic kidney disease; I45.2 Bifascicular block; I73.01 Raynaud's syndrome with gangrene; E87.20 Acidosis, unspecified; M87.044 Idiopathic aseptic necrosis of right finger(s); D53.9 Nutritional anemia, unspecified; I25.5 Ischemic cardiomyopathy; D49.519 Neoplasm of unspecified behavior of unspecified kidney; Z20.822 Contact with and (suspected) exposure to COVID-19; E11.22 Type 2 diabetes mellitus with diabetic chronic kidney disease; D72.819 Decreased white blood cell count, unspecified; I25.10 Atherosclerotic heart disease of native coronary artery without angina pectoris; I77.82 Antineutrophilic cytoplasmic antibody [ANCA] vasculitis; E11.65 Type 2 diabetes mellitus with hyperglycemia; E83.39 Other disorders of phosphorus metabolism; J39.8 Other specified diseases of upper respiratory tract; L97.519 Non-pressure chronic ulcer of other part of right foot with unspecified severity; T50.995A Adverse effect of other drugs, medicaments and biological substances, initial encounter; J45.909 Unspecified asthma, uncomplicated; N18.9 Chronic kidney disease, unspecified; Z51.5 Encounter for palliative care; Z86.718 Personal history of other venous thrombosis and embolism; Z95.5 Presence of coronary angioplasty implant and graft; Z95.828 Presence of other vascular implants and grafts; Y92.89 Other specified places as the place of occurrence of the external cause
CPT/HCPCS: 36415; 36600; 71045; 80048; 80053; 80061; 80076; 80305; 80320; 81003; 82085; 82164; 82247; 82375; 82533; 82550; 82553; 82607; 82728; 82746; 82805; 82962; 83036; 83516; 83520; 83540; 83550; 83605; 83735; 83880; 84100; 84145; 84439; 84443; 84450; 84478; 84484; 85025; 85027; 85044; 85379; 85651; 86147; 86160; 86225; 86235; 86256; 86332; 86850; 86880; 86900; 86920; 87070; 87426; 87804; 90686; 93005; 93306; 93970; 94003; 94640; 99291; 99292; J0456; J0696; J0885; J1815; J1953; J2250; J2470; J2543; J2704; J2919; J2920; J3370; J3490; J7030; J7042; J7608; G0480